=== PATIENT | male | born 1995 | race Caucasian/White ===

== ENCOUNTER 2016-11-26 16:33 | Emergency (ER) | payer OTHER ==
[~2016-11-26] VITALS: Ht 180.3 cm; Wt 80.0 kg
[2016-11-26 16:35] VITALS: BP 141/72; PULSE 110; RESP 15; TEMP 101.7; O2SAT 95
--- NOTE | 2016-11-26 17:07 | PD ---
HPI Chief Complaint: Cold / Flu Symptoms Time Seen by Provider: 16:56 Travel History International Travel<30 days: No Contact w/Intl Traveler<30days: No Traveled to known affect area: No History of Present Illness HPI The patient is a 21-year-old male who presents to the emergency department for 2-3 day history of cold and flu symptoms. The patient states his symptoms started approximately 2-3 days ago consisting of congestion , sore throat, headache, dry nonproductive cough, nausea, vomiting, diarrhea, intermittent abdominal cramping, and myalgias. The patient did not receive an influenza vaccination this year. He has been taking [id number] cough and cold medications with mild relief of his symptoms. The patient denies any recent international travel in the last 3 months. The patient denies any sick contacts at home. The patient denies any abdominal pain upon examination. Symptoms are moderate, mildly alleviated with [id number] cough and cold medicines, and there are no current known exacerbating factors. PFSH Past Medical History Medical History: Denies Significant Hx Past Surgical History Surgical History: No Previous Surgery Social History Tobacco Use: Yes Substance Use: Yes (marijuana, no IV drug use) Allergies-Medications (Allergen,Severity, Reaction): Coded Allergies: No Known Allergies (Unverified , 11/26/16) Reported Meds & Prescriptions Reported Meds & Active Scripts Active No Active Prescriptions or Reported Medications Review of Systems Except as stated in HPI: all other systems reviewed are Neg General / Constitutional: Positive: Fever HENT: Positive: Headaches, Sore Throat, Congestion Cardiovascular: No: Chest Pain or Discomfort Respiratory: Positive: Cough, No: Shortness of Breath Gastrointestinal: Positive: Nausea, Vomiting, Diarrhea, Abdominal Pain ( intermittent abdominal cramping) Genitourinary: No: Dysuria Musculoskeletal: Positive: Myalgias Skin: No Rash Physical Exam Narrative GENERAL: Awake, alert, pleasant 21-year-old male who appears his stated age and is in no acute respiratory distress. SKIN: Warm and dry. HEAD: Atraumatic. Normocephalic. EYES: Pupils equal and round. No scleral icterus. No injection or drainage. ENT: No nasal bleeding or discharge. Mild erythema but no exudate. NECK: Trachea midline. No JVD. No meningeal signs. CARDIOVASCULAR: Regular, tachycardic with a heart rate 110. RESPIRATORY: No accessory muscle use. Clear to auscultation. Breath sounds equal bilaterally. GASTROINTESTINAL: Abdomen soft, non-tender, nondistended. No rebound tenderness. Negative Mcintyre's. Negative McBurney's. Back: No CVA tenderness. MUSCULOSKELETAL: No obvious deformities. No clubbing. No cyanosis. No edema. NEUROLOGICAL: Awake and alert. No obvious cranial nerve deficits. Motor grossly within normal limits. Normal speech. PSYCHIATRIC: Appropriate mood and affect; insight and judgment normal. Data Data Last Documented VS Vital Signs Date Time Temp Pulse Resp B/P Pulse Ox O2 Delivery O2 Flow Rate FiO2 11/26/16 16:35 101.7 110 15 141/72 95 Orders Influenzae A/B Antigen (11/26/16 17:01) Chest, Single Ap (11/26/16 ) Complete Blood Count With Diff (11/26/16 17:01) Comprehensive Metabolic Panel (11/26/16 17:01) Ketorolac Inj (Toradol Inj) (11/26/16 17:15) Ondansetron Inj (Zofran Inj) (11/26/16 17:15) Acetaminophen (Tylenol) (11/26/16 17:15) Sodium Chlor 0.9% 1000 Ml Inj (Ns 1000 M (11/26/16 17:15) Sodium Chlor 0.9% 1000 Ml Inj (Ns 1000 M (11/26/16 18:30) Labs Laboratory Tests Test 11/26/16 17:30 White Blood Count 11.0 TH/MM3 Red Blood Count 6.02 MIL/MM3 Hemoglobin 14.7 GM/DL Hematocrit 44.3 % Mean Corpuscular Volume 73.6 FL Mean Corpuscular Hemoglobin 24.4 PG Mean Corpuscular Hemoglobin 33.2 % Concent Red Cell Distribution Width 17.9 % Platelet Count 178 TH/MM3 Mean Platelet Volume 7.8 FL Neutrophils (%) (Auto) 76.9 % Lymphocytes (%) (Auto) 10.5 % Monocytes (%) (Auto) 11.9 % Eosinophils (%) (Auto) 0.1 % Basophils (%) (Auto) 0.6 % Neutrophils # (Auto) 8.4 TH/MM3 Lymphocytes # (Auto) 1.2 TH/MM3 Monocytes # (Auto) 1.3 TH/MM3 Eosinophils # (Auto) 0.0 TH/MM3 Basophils # (Auto) 0.1 TH/MM3 CBC Comment AUTO DIFF Differential Comment AUTO DIFF CONFIRMED Ovalocytes 1+ Sodium Level 134 MEQ/L Potassium Level 3.7 MEQ/L Chloride Level 98 MEQ/L Carbon Dioxide Level 28.5 MEQ/L Anion Gap 8 MEQ/L Blood Urea Nitrogen 12 MG/DL Creatinine 1.43 MG/DL Estimat Glomerular Filtration 63 ML/MIN Rate Random Glucose 84 MG/DL Calcium Level 9.1 MG/DL Total Bilirubin 1.0 MG/DL Aspartate Amino Transf 28 U/L (AST/SGOT) Alanine Aminotransferase 16 U/L (ALT/SGPT) Alkaline Phosphatase 69 U/L Total Protein 8.8 GM/DL Albumin 4.1 GM/DL MDM Medical Decision Making Medical Screen Exam Complete: Yes Emergency Medical Condition: Yes Medical Record Reviewed: Yes Interpretation(s) Chest x-ray reveals no acute cardiopulmonary disease Last Impressions Chest X-Ray 11/26/16 0000 Signed Impressions: Service Date/Time: Saturday, November 26, 2016 17:30 - CONCLUSION: 1. No acute cardiopulmonary disease. Lino Torres MD Laboratory Tests Test 11/26/16 17:30 White Blood Count 11.0 TH/MM3 Red Blood Count 6.02 MIL/MM3 Hemoglobin 14.7 GM/DL Hematocrit 44.3 % Mean Corpuscular Volume 73.6 FL Mean Corpuscular Hemoglobin 24.4 PG Mean Corpuscular Hemoglobin 33.2 % Concent Red Cell Distribution Width 17.9 % Platelet Count 178 TH/MM3 Mean Platelet Volume 7.8 FL Neutrophils (%) (Auto) 76.9 % Lymphocytes (%) (Auto) 10.5 % Monocytes (%) (Auto) 11.9 % Eosinophils (%) (Auto) 0.1 % Basophils (%) (Auto) 0.6 % Neutrophils # (Auto) 8.4 TH/MM3 Lymphocytes # (Auto) 1.2 TH/MM3 Monocytes # (Auto) 1.3 TH/MM3 Eosinophils # (Auto) 0.0 TH/MM3 Basophils # (Auto) 0.1 TH/MM3 CBC Comment AUTO DIFF Differential Comment AUTO DIFF CONFIRMED Ovalocytes 1+ Sodium Level 134 MEQ/L Potassium Level 3.7 MEQ/L Chloride Level 98 MEQ/L Carbon Dioxide Level 28.5 MEQ/L Anion Gap 8 MEQ/L Blood Urea Nitrogen 12 MG/DL Creatinine 1.43 MG/DL Estimat Glomerular Filtration 63 ML/MIN Rate Random Glucose 84 MG/DL Calcium Level 9.1 MG/DL Total Bilirubin 1.0 MG/DL Aspartate Amino Transf 28 U/L (AST/SGOT) Alanine Aminotransferase 16 U/L (ALT/SGPT) Alkaline Phosphatase 69 U/L Total Protein 8.8 GM/DL Albumin 4.1 GM/DL Date/Time Procedure Status Source Growth 11/26/16 17:30 Influenza Types A,B Antigen (MAYA) - Final Complete Nasal Aspirate Positive For Flu A Antigen Differential Diagnosis Differential diagnosis includes influenza, viral syndrome, gastroenteritis, pneumonia, strep pharyngitis, dehydration, acute renal failure. Narrative Course IV was established, labs were drawn and sent, and the patient was placed on cardiac telemetry monitoring and continuous pulse oximetry monitoring. Chest x- ray was obtained. Influenza screen was sent to lab. The patient received IV fluid bolus, Zofran, Toradol, and Tylenol. CBC is unremarkable. CMP does reveal mildly elevated creatinine 1.43, possibly secondary to dehydration. Chest x-ray is negative for influenza. Influenza screen is positive for influenza A. The patient was administered a second liter of IV fluids. The patient was reevaluated at 6:30 PM, his symptoms had significantly improved. Patient be discharged home on Tamiflu is advised to alternate Tylenol and or Motrin for pain and fever, drink plain fluids to stay hydrated, follow-up with his primary physician. Return if symptoms worsen or progress. Diagnosis Primary Impression: Influenza Patient Instructions: General Instructions Additional Instructions: Drink plenty fluids to stay hydrated. Alternate Tylenol and Motrin for pain/ fever. Follow-up with your primary physician. Return if symptoms worsen or progress. Med/Other Pt SpecificInfo: Prescription(s) given Scripts Oseltamivir (Tamiflu)75 Mg Cap75 Mg PO BID 5 Days Ref 0 Prov:Camilo Lam MD 11/26/16 Disposition: DISCHARGE HOME Condition: Stable Camilo Lam MD Nov 26, 2016 17:07
[2016-11-26] MEDS ORDERED: ONDANSETRON HCL 4 MG/2 ML VIAL IV PUSH ONE (17:15)
[2016-11-26] MEDS ORDERED: KETOROLAC TROMETHAMINE 30 MG/ML (IVP) VIAL IV PUSH ONE (17:15)
[2016-11-26] MEDS ORDERED: SODIUM CHLOR 0.9% 1000 ML INJ 1,000 ML IV ONE ×2 (17:15→18:30)
[2016-11-26] MEDS ORDERED: ACETAMINOPHEN 325 MG TAB PO ONE (17:15)
[2016-11-26 17:49] LABS: AUTOMATED NEUTROPHIL # 8.4 TH/MM3 (1.8-7.7); BASOPHIL # 0.1 TH/MM3 (0-0.2); BASOPHIL % 0.6 % (0.0-2.0); EOSINOPHIL % 0.1 % (0.0-4.0); HEMATOCRIT 44.3 % (39.0-51.0); LYMPH % 10.5 % (9.0-44.0); LYMPHOCYTE # 1.2 TH/MM3 (1.0-4.8); MEAN CELL VOLUME 73.6 FL (80.0-100.0); MEAN CORPUSCULAR HEMOGLOBIN 24.4 PG (27.0-34.0); MEAN CORPUSCULAR HGB CONC 33.2 % (32.0-36.0); MONO % 11.9 % (0.0-8.0); NEUT % 76.9 % (16.0-70.0); PLATELET COUNT 178 TH/MM3 (150-450); RED BLOOD COUNT 6.02 MIL/MM3 (4.50-5.90); RED CELL DISTRIBUTION WIDTH 17.9 % (11.6-17.2)
--- NOTE | 2016-11-26 17:50 | RADRPT ---
EXAM DATE/TIME: 11/26/2016 17:30 [facility] COMPARISON: No previous studies available for comparison. INDICATIONS : Fever and cough. MEDICAL HISTORY : None. SURGICAL HISTORY : None. ENCOUNTER: Initial ACUITY: 3 days PAIN SCORE: 1/10 LOCATION: Bilateral chest FINDINGS: A single view of the chest demonstrates the lungs to be symmetrically aerated without evidence of mas s, infiltrate or effusion. The cardiomediastinal contours are unremarkable. Osseous structures are intact. CONCLUSION: 1. No acute cardiopulmonary disease. Lino Torres MD on November 26, 2016 at 17:48 Board Certified Radiologist. This report was verified electronically.
[2016-11-26 18:08] LABS: HEMO FLAGS AUTO DIFF
[2016-11-26 18:13] LABS: ALKALINE PHOSPHATASE 69 U/L (45-117)
[2016-11-26 18:18] LABS: ALT (GPT) 16 U/L (9-52); ANION GAP 8 MEQ/L (5-15); AST (GOT) 28 U/L (15-39); BICARBONATE 28.5 MEQ/L (21.0-32.0); BLOOD UREA NITROGEN 12 MG/DL (7-18); CHLORIDE 98 MEQ/L (98-107); GLOMERULAR FILTRATION RATE 63 ML/MIN (>89); POTASSIUM 3.7 MEQ/L (3.5-5.1); SODIUM (NA) 134 MEQ/L (136-145)
[2016-11-26 18:30] LABS: OVALOCYTES 1+ (NORMAL)
[2016-11-26 18:31] LABS: SCAN/DIFF AUTO DIFF CONFIRMED
[2016-11-26 18:32] VITALS: TEMP 100.6
[2016-11-26] MEDS ORDERED: OSEL75 PO (18:34)
[2016-11-26 19:36] VITALS: RESP 16
[2016-11-26 19:38] VITALS: BP 131/68; TEMP 99.9
== END 2016-11-26 19:45 | disposition home or self-care (01) ==
LOC: NEPB 16:33
DX: J09.X9 Influenza due to identified novel influenza A virus with other manifestations (principal); F12.10 Cannabis abuse, uncomplicated; Z72.0 Tobacco use
CPT/HCPCS: 71010; 80053; 85025; 87804; 96361; 96374; 96375; 99284; J1885; J2405; J7030

== ENCOUNTER 2017-04-14 11:09 | Emergency (ER) | payer MEDICAID, OTHER ==
[~2017-04-14] VITALS: Ht 180.3 cm; Wt 75.0 kg
[~2017-04-14 11:09] MED LIST: OSEL75 PO
[2017-04-14 11:10] VITALS: BP 155/91; PULSE 61; RESP 15; TEMP 98.2; O2SAT 98
[2017-04-14] MEDS ORDERED: IBUPROFEN 800 MG TAB PO ONE (11:30)
--- NOTE | 2017-04-14 11:39 | PD ---
HPI Chief Complaint: Injury Time Seen by Provider: 11:28 Travel History International Travel<30 days: No Contact w/Intl Traveler<30days: No Traveled to known affect area: No History of Present Illness HPI 21-year-old male presents to the emergency department complaining of right hand pain and injury after punching a brick wall today. Reports paresthesias to the right fourth and fifth digits. Denies loss of sensation. Reports decreased range of motion and strength to the right hand. Reports an abrasion to his right fifth knuckle. Reports being up-to-date on his tetanus vaccination. Has not taken any medications or tried any treatments to alleviate his symptoms. No known allergies. Has no other medical complaints. No other modifying factors or associated signs and symptoms. [facility] Social History Tobacco Use: Yes Substance Use: Yes (marijuana, no IV drug use) Allergies-Medications (Allergen,Severity, Reaction): Coded Allergies: No Known Allergies (Unverified , 04/14/17) Reported Meds & Prescriptions Reported Meds & Active Scripts Active Ibuprofen 800 Mg Tab 800 Mg PO Q6HR PRN Review of Systems Except as stated in HPI: all other systems reviewed are Neg Physical Exam Narrative GENERAL: Well-nourished, well-developed male patient, in no acute distress SKIN: Warm and dry. Abrasion noted in between the fourth and fifth knuckles of the right hand. HEAD: Atraumatic. Normocephalic. EYES: Pupils equal and round. No scleral icterus. No injection or drainage. ENT: Mucosa pink and moist. Airway patent. NECK: Trachea midline. CARDIOVASCULAR: Regular rate. RESPIRATORY: No accessory muscle use. GASTROINTESTINAL: Flat. MUSCULOSKELETAL: Right hand with tenderness on palpation over the third, fourth , fifth metacarpal area; minimal edema noted; without ecchymosis or erythema. Right upper extremity is supple and non-tense with 2+ radial pulse and sensory intact. Right hand fingers with sensory intact; with limited range of motion to the third, fourth, fifth fingers. No obvious deformities. No clubbing. No cyanosis. NEUROLOGICAL: Awake and alert. Oriented 3. No obvious cranial nerve deficits. Motor grossly within normal limits. Normal speech. PSYCHIATRIC: Appropriate mood and affect; insight and judgment normal. Data Data Last Documented VS Vital Signs Date Time Temp Pulse Resp B/P Pulse Ox O2 Delivery O2 Flow Rate FiO2 04/14/17 11:10 98.2 61 15 155/91 98 Orders Hand, Complete ([id number]) (04/14/17 11:22) Ice/Cold Pack (04/14/17 11:22) Ibuprofen (Motrin) (04/14/17 11:30) MDM Medical Decision Making Medical Screen Exam Complete: Yes Emergency Medical Condition: Yes Medical Record Reviewed: Yes Differential Diagnosis Boxer's fracture, hand fracture, hand sprain, hand contusion, abrasion Narrative Course 21-year-old male with right hand injury after punching a brick wall. Ice pack applied in ER. Ibuprofen and a right hand x-ray ordered. 1312: Right hand x-ray with no acute findings. Wound care provided. Cruz bandage applied for support. Ibuprofen prescribed for home. Patient verbalizes understanding and agreement with treatment plan. Patient is medically cleared and stable for discharge. Discussed reasons to return to the emergency department. Instructed patient to follow up with primary care provider. Patient agrees with treatment plan. The patients vital signs are stable and the patient is stable for outpatient follow-up and treatment. Patient discharged home, stable and in no acute distress. Diagnosis Primary Impression: Hand injury Qualified Code: S69.91XA - Hand injury, right, initial encounter Referrals: Hand Surgeon Primary Care Physician Patient Instructions: Acute Wound Care (ED), General Instructions, Hand Sprain (ED) Departure Forms: Tests/Procedures, Work Release Enter return to work date: Apr 21, 2017 Additional Instructions: Tylenol or ibuprofen as directed and as needed to reduce pain Rest, ice, compress, and elevate extremity to decrease pain and inflammation Splint for support; do not remove splint until cleared by hand surgeon Avoid aggravating activity; increase activity as tolerated Follow-up with primary care provider Follow-up with hand surgeon Return to the emergency department immediately with worsening symptoms Med/Other Pt SpecificInfo: Prescription(s) given Scripts Ibuprofen 800 Mg [id number] Mg PO Q6HR PRN (PAIN) #30 TAB Ref 0 Prov:Kelsea King 04/14/17 Disposition: 01 DISCHARGE HOME Condition: Stable Kelsea King Apr 14, 2017 11:39
--- NOTE | 2017-04-14 12:42 | RADRPT ---
EXAM DATE/TIME: 04/14/2017 12:03 [facility] COMPARISON: CHEST SINGLE AP, November 26, 2016, 17:30. INDICATIONS : Right hand pain, punched a wall this morning. MEDICAL HISTORY : None. SURGICAL HISTORY : None. ENCOUNTER: Initial ACUITY: 1 day PAIN SCORE: 8/10 LOCATION: Right hand FINDINGS: Three view examination of the right hand demonstrates no soft tissue swelling, dislocation, or fractu re. The carpal bones appear intact. The interphalangeal and metacarpophalangeal joints are intact. Bony mineralization is normal. CONCLUSION: 1. Negative examination. Ever Wilder MD on April 14, 2017 at 12:36 Board Certified Radiologist. This report was verified electronically.
[2017-04-14] MEDS ORDERED: IBUP800T23 PO (13:09)
== END 2017-04-14 13:54 | disposition home or self-care (01) ==
LOC: NEPK 11:09
DX: S69.91XA Unspecified injury of right wrist, hand and finger(s), initial encounter (principal); F12.90 Cannabis use, unspecified, uncomplicated; W22.01XA Walked into wall, initial encounter; Z72.0 Tobacco use
CPT/HCPCS: 73130; 99283